=== PATIENT | female | born 1995 | race Asian ===

== ENCOUNTER 2020-01-27 13:16 | Emergency (ER) | payer OTHER ==
[2020-01-27] MEDS ORDERED: NS 0.9% 1000 ML** 1,000 ML IV ONE (13:20)
[2020-01-27] MEDS ORDERED: Metoclopramide IV* 5 MG/ML 2 ML VIAL IV ONE (13:20)
--- NOTE | 2020-01-27 13:22 | ED ---
Influenza-Like Illness - HPI Summary HPI Summary: 24 year old F presenting to [facility] via EMS with a chief complaint of a headache, nausea, a fever last week, and a cough since before last week. Patient reports 1 second of chest pain this morning. The patient rates the pain 3/10 in severity. Symptoms aggravated by nothing. Symptoms alleviated by nothing. The patient was seen previously for her symptoms and was prescribed antibiotics for 5 days which she finished 2 days ago. She was tested for the flu last week which was negative. Patient denies any vomiting, body aches, rhinorrhea, or sore throat. She was able to eat and drink today. The patient admits to occasionally drinking alcohol but denies an active history of smoking or recreational drug use. She has a previous history of an appendectomy. She denies any pertinent medical history or family medical history. Medication list reviewed. Allergy list reviewed. Home Medications Medication Instructions Recorded Confirmed Type NK [No Home Medications Reported] 01/27/20 01/27/20 History - History of Current Complaint Hx Obtained From: Patient Onset/Duration: Lasting Days Severity: Mild Associated Signs & Symptoms: Negative - Sore throat, rhinorrhea, body aches, vomiting, Fever, Cough, Headache - Allergy/Home Medications Allergies/Adverse Reactions: Allergies Allergy/AdvReac Type Severity Reaction Status Date / Time No Known Allergies Allergy Verified 01/27/20 13:44 Home Medications: Home Medications Ondansetron ODT TAB* [Zofran 4 MG Odt TAB*] 4 mg PO Q8H PRN #10 tab.odt [Rx] PMH/Surg Hx/FS Hx/Imm Hx Endocrine/Hematology History: Denies: Hx Diabetes Cardiovascular History: Denies: Hx Hypertension - Surgical History Surgical History: Yes Surgery Procedure, Year, and Place: Appendectomy - Family History Known Family History: Negative: Hypertension, Diabetes - Social History Alcohol Use: Occasionally Hx Substance Use: No Substance Use Type: Reports: None Hx Tobacco Use: No Smoking Status (MU): Never Smoked Tobacco Review of Systems Positive: Fever Negative: Sore Throat, Nasal Discharge Positive: Cough Positive: Nausea. Negative: Vomiting Negative: Myalgia Positive: Headache All Other Systems Reviewed And Are Negative: Yes Physical Exam - Summary Physical Exam Summary: VITAL SIGNS: Reviewed. GENERAL: Patient is a well-developed and nourished female who is lying comfortable in the stretcher. Patient is not in any acute respiratory distress. HEAD AND FACE: No signs of trauma. No ecchymosis, hematomas or skull depressions. No sinus tenderness. Runny nose. EYES: PERRLA, EOMI x 2, No injected conjunctiva, no nystagmus. EARS: Hearing grossly intact. Ear canals and tympanic membranes are within normal limits. MOUTH: Oropharynx within normal limits. Pharyngeal erythema. NECK: Supple, trachea is midline, no adenopathy, no JVD, no carotid bruit, no c- spine tenderness, neck with full ROM. CHEST: Symmetric, no tenderness at palpation. LUNGS: Clear to auscultation bilaterally. No wheezing or crackles. CVS: Regular rate and rhythm, S1 and S2 present, no murmurs or gallops appreciated. ABDOMEN: Soft, non-tender. No signs of distention. No rebound, no guarding, and no masses palpated. Bowel sounds are normal. EXTREMITIES: FROM in all major joints, no edema, no cyanosis or clubbing. NEURO: Alert and oriented x 3. No acute neurological deficits. Speech is normal and follows commands. SKIN: Dry and warm. Triage Information Reviewed: Yes Vital Signs Reviewed: Yes Procedures - Sedation Patient Received Moderate/Deep Sedation with Procedure: No Diagnostics - Laboratory Result Diagrams: 01/27/20 13:26 01/27/20 13:26 Lab Statement: Any lab studies that have been ordered have been reviewed, and results considered in the medical decision making process. - Radiology Chest x-ray Radiology Interpretation Completed By: Radiologist Summary of Radiographic Findings: IMPRESSION: NO ACTIVE CARDIOPULMONARY DISEASE. ED physician has reviewed this report. Flu Symptom Course/Dx - Course Assessment/Plan: 24 year old F presenting to [facility] via EMS with a chief complaint of a headache, nausea, a fever last week, and a cough since before last week. Patient reports 1 second of chest pain this morning. The patient rates the pain 3/10 in severity. Symptoms aggravated by nothing. Symptoms alleviated by nothing. The patient was seen previously for her symptoms and was prescribed antibiotics for 5 days which she finished 2 days ago. She was tested for the flu last week which was negative. Patient denies any vomiting, body aches, rhinorrhea, or sore throat. She was able to eat and drink today. The patient admits to occasionally drinking alcohol but denies an active history of smoking or recreational drug use. She has a previous history of an appendectomy. She denies any pertinent medical history or family medical history. Medication list reviewed. Allergy list reviewed. 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 She was given Reglan for nausea and vomiting. Past medical records reviewed. Blood test w/o a significant abnormality except for hemoglobin 11.3, hematocrit 34, glucose 115. Urinalysis is negative for UTI. [facility] screen was negative, influenza A is negative, influenza B is negative, and rapid strep is negative. In the ED course the patient was given Valium and IV fluids and the symptoms have improved. The patient is hemodynamically stable. Therefore she will be discharged home with follow-up with primary care physician. Patient will be given a prescription for Zofran for nausea and vomiting. I discussed all the findings and test results with the patient. Patient was instructed to return to the emergency room immediately if any of the symptoms return or worsen. Plan of care was discussed with the patient and she understands and agrees. All questions were answered at patient satisfaction. There were no further complaints or concerns. Lung exam before discharge: CTA B/L. Good air exchange. No wheezing or crackles heard. CVS: S1 and S2 present. No murmurs appreciated. Patient is alert and oriented x 3. Patient is hemodynamically stable. Patient will be discharged home with follow up PCP in the next 2-3 days. - Diagnoses Provider Diagnoses: URI (upper respiratory infection), Nausea & vomiting Discharge ED - Sign-Out/Discharge Documenting (check all that apply): Patient Departure - Discharge Plan Condition: Stable Disposition: HOME Prescriptions: Ondansetron ODT TAB* [Zofran 4 MG Odt TAB*] 4 mg PO Q8H PRN #10 tab.odt PRN Reason: Vomiting Patient Education Materials: Upper Respiratory Infection (ED), Acute Nausea and Vomiting (ED) Referrals: [facility] - [facility] [Primary Care Provider] - 3 Days Additional Instructions: Follow up with your primary care provider within 3 days for upper respiratory infection and nausea and vomiting noted today. Return to the emergency department for any worsening or new symptoms. - Billing Disposition and Condition Condition: STABLE Disposition: Home - Attestation Statements Document Initiated by Scribe: Yes Documenting Scribe: Vanessa Tobar Provider For Whom Scribe is Documenting (Include Credential): Baljit Lima MD Scribe Attestation: I, Vanessa Tobar, scribed for Baljit Lima MD on 01/28/20 at 1137. Scribe Documentation Reviewed: Yes Provider Attestation: The documentation as recorded by the scribeVanessa accurately reflects the service I personally performed and the decisions made by me, Baljit Lima MD Status of Scribe Document: Viewed
[2020-01-27 13:44] LABS: ABS Lymphocytes 1.2 10^3/ul (1.0-4.8); ABS Monocytes 0.4 10^3/ul (0-0.8); ABS Neutrophils 2.5 10^3/ul (1.5-7.7); Eosinophil % 0.4 %; Hematocrit 34 % (35-47); Hemoglobin 11.3 g/dL (12.0-16.0); Lymphocyte % 28.6 %; Mean Corpuscular HGB Conc 33 g/dL (31-36); Mean Corpuscular Hemoglobin 29 pg (27-31); Mean Corpuscular Volume 87 fL (80-97); Mean Platelet Volume 7.7 fL (7.4-10.4); Platelet Count 203 10^3/uL (150-450); Red Blood Count 3.92 10^6 /uL (3.70-4.87); Red Cell Distribution Width 13 % (10-15)
[2020-01-27 14:05] LABS: ALT 9 U/L (7-52); AST 15 U/L (13-39); Albumin 4.2 g/dL (3.2-5.2); Albumin/Globulin Ratio 1.2 (1-3); Alkaline Phosphatase 38 U/L (34-104); Anion Gap 4 mmol/L (2-11); BUN/Creatinine Ratio 13.9 (8-20); Blood Urea Nitrogen 10 mg/dL (6-24); C Reactive Protein 1.31 mg/L (<8.01); CO2 Carbon Dioxide 30 mmol/L (22-32); Calcium 9.2 mg/dL (8.6-10.3); Chloride 102 mmol/L (101-111); EGFR African American 120.4 (>60); EGFR Non-African American 99.5 (>60); Globulin 3.4 g/dL (2-4); Glucose 115 mg/dL (70-100); Potassium 4.3 mmol/L (3.5-5.0); Sodium 136 mmol/L (135-145); Total Protein 7.6 g/dL (6.4-8.9)
[2020-01-27 14:11] LABS: HCG Pregnancy < 0.60 mIU/mL
[2020-01-27 14:17] LABS: Rapid Strep Molecular Negative (Negative)
[2020-01-27 14:25] LABS: Influenza A Molecular Negative (Negative); Influenza B Molecular Negative (Negative)
[2020-01-27 14:36] LABS: Urine Appearance Cloudy; Urine Bilirubin Negative (Negative); Urine Blood Negative (Negative); Urine Glucose Negative (Negative); Urine Ketones Negative (Negative); Urine Nitrite Negative (Negative); Urine Protein Negative (Negative); Urine Specific Gravity 1.016 (1.010-1.030); Urine Urobilinogen Negative (Negative)
[2020-01-27 14:37] LABS: Urine Color Yellow
[2020-01-27 16:19] VITALS: BP 98/66
== END 2020-01-27 16:16 | disposition home or self-care (01) ==
LOC: ED 13:16
DX: J06.9 Acute upper respiratory infection, unspecified (principal); R11.2 Nausea with vomiting, unspecified
CPT/HCPCS: 36415; 71045; 80053; 81003; 84702; 85025; 86140; 86308; 87651; 96361; 96374; 99283; J2765